=== PATIENT | male | born 1970 | race Caucasian/White ===

== ENCOUNTER 2021-01-14 09:51 | Day surgery (SDC) | payer BC ==
[~2021-01-14] VITALS: Ht 180.3 cm; Wt 83.0 kg
[~2021-01-14 09:51] MED LIST: BUPIVACAINE-EPI 0.5% 30 ML VIAL KIT. ONE; HYDROmorphone 2 MG/ML VIAL IVP PRN; IV RINGERS,LACTATED 1000ML 1,000 ML IV SCH; MORPHINE SULFATE 2 MG/ML INJ. IVP PRN; PROCHLORPERAZINE 10 MG/2 ML VIAL. IVP PRN; fentaNYL PF VIAL 100 MCG/2 ML VIAL IVP PRN
[2021-01-14 10:20] VITALS: BP 138/76
--- NOTE | 2021-01-14 10:42 | PDOC1 ---
History and Physical Date of Admission Date of Admission DATE: 01/14/21 TIME: 10:39 History of Present Illness History of Present Illness The patient is a 50 year old male who reported with a symptomatic left inguinal hernia. He has noticed occasional protrusion from the groin, but one episode led to more severe pain. Gradually it reduced and the pain improved. He denies significant changes in bowel function. Past Medical History Past Medical History denies Past Surgical History Past Surgical History LASIK Social History Smoke: No ALCOHOL: rare Current Medications Current Medications Current Medications Fentanyl Citrate (Fentanyl 2ml Vial) 25 mcg PRN Q5MIN PRN IVP MILD PAIN 1-3; Start 01/14/21 at 06:00; Stop 01/14/21 at 20:00 Fentanyl Citrate (Fentanyl 2ml Vial) 50 mcg PRN Q5MIN PRN IVP MODERATE PAIN 4- 6; Start 01/14/21 at 06:00; Stop 01/14/21 at 20:00 Morphine Sulfate (Morphine Sulfate) 1 mg PRN Q10MIN PRN IVP SEVERE PAIN 7-10; Start 01/14/21 at 06:00; Stop 01/14/21 at 20:00 Ringer's Solution 1,000 ml @ 30 mls/hr Q24H IV Last administered on 01/14/21at 10:29; Start 01/14/21 at 06:00; Stop 01/14/21 at 17:59 Hydromorphone HCl (Dilaudid) 0.5 mg PRN Q10MIN PRN IVP SEVERE PAIN 7-10, 2nd CHOICE; Start 01/14/21 at 06:00; Stop 01/14/21 at 20:00 Prochlorperazine Edisylate (Compazine) 5 mg PACU PRN PRN IVP NAUSEA, MRX1; Start 01/14/21 at 06:00; Stop 01/14/21 at 20:00 Cefazolin Sodium/ Dextrose 50 ml @ 100 mls/hr 1X PREOP PRN IV PRIOR TO PROCEDURE; Start 01/14/21 at 06:00; Stop 01/14/21 at 18:00 Bupivacaine HCl/ Epinephrine Bitart (Sensorcain-Epi 0.5% Kit) 30 ml STK-MED ONCE .ROUTE ; Start 01/14/21 at 07:02; Stop 01/14/21 at 07:02; Status DC Active Scripts Active Reported No Known Medications Prior To Admisstion (Info) Each 1 Each MC 1X Allergies Allergies: Coded Allergies: amoxicillin (Verified Allergy, Unknown, DIARRHEA, 01/14/21) clavulanic acid (Verified Allergy, Unknown, DIARRHEA, 01/14/21) ROS General: No: Chills, Night Sweats, Fatigue, Malaise, Appetite, Other PSYCHOLOGICAL ROS: No: Anxiety, Behavioral Disorder, Concentration difficultie, Decreased libido, Depression, Disorientation, Hallucinations, Hostility, Irritablity, Memory difficulties, Mood Swings, Obsessive thoughts, Physical abuse, Sexual abuse, Sleep disturbances, Suicidal ideation, Other Eyes: No Blurry vision, No Decreased vision, No Double vision, No Dry eyes, No Excessive tearing, No Eye Pain, No Itchy Eyes, No Loss of vision, No Photophobia, No Scotomata, No Uses contacts, No Uses glasses, No Other HEENT: No: Heacaches, Visual Changes, Hearing change, Nasal congestion, Nasal discharge, Oral lesions, Sinus pain, Sore Throat, Epistaxis, Sneezing, Snoring, Tinnitus, Vertigo, Vocal changes, Other ALLERGY AND IMMUNOLOGY: No: Hives, Insect Bite Sensitivity, Itchy/Watery Eyes, Nasal Congestion, Post Nasal Drip, Seasonal Allergies, Other Hematological and Lymphatic: No: Bleeding Problems, Blood Clots, Blood Transfusions, Brusing, Night Sweats, Pallor, Swollen Lymph Nodes, Other ENDOCRINE: No: Breast Changes, Galactorrhea, Hair Pattern Changes, Hot Flashes, Malaise/lethargy, Mood Swings, Palpitations, Polydipsia/polyuria, Skin Changes, Temperature Intolerance, Unexpected Weight Changes, Other Cardiovascular: No Chest Pain, No Palpitations, No Orthopnea, No Paroxysmal Noc. Dyspnea, No Edema, No Lt Headedness, No Other Gastrointestinal: No Nausea, No Vomiting, No Abdominal Pain, No Diarrhea, No Constipation, No Melena, No Hematochezia, No Other Genitourinary: No Dysuria, No Frequency, No Incontinence, No Hematuria, No Retention, No Discharge, No Urgency, No Pain, No Flank Pain, No Other, No , No , No , No , No , No , No Musculoskeletal: No Gait Disturbance, No Joint Pain, No Joint Stiffness, No Joint Swelling, No Muscle Pain, No Muscular Weakness, No Pain In:, No Swelling In:, No Other Skin: No Dry Skin, No Eczema, No Hair Changes, No Lumps, No Mole Changes, No Mottling, No Nail Changes, No Pruritus, No Rash, No Skin Lesion Changes, No Other, No Acne Physical Exam General: Alert, Oriented X3, Cooperative HEENT: Atraumatic Lungs: Clear to auscultation Heart: RRR Abdomen: Soft Male Genitals Exam: hernia (left side, reducible) Extremities: No clubbing, No cyanosis Skin: No rashes Neuro: Normal speech Psych/Mental Status: Mental status NL Vitals Vitals Vital Signs Date Time Temp Pulse Resp B/P (MAP) Pulse Ox O2 Delivery O2 Flow Rate FiO2 01/14/21 10:24 98.3 79 18 138/76 98 Room Air 98.3 VTE Prophylaxis Ordered VTE Prophylaxis Devices: Yes VTE Pharmacological Prophylaxi: No Assessment/Plan Assessment/Plan Left inguinal hernia; I reviewed the details regarding surgical repair of the hernia and the use of mesh. The risks of surgery were also discussed. He understands and would like to proceed. Justifications for Admission Other Justification LIYA LOREDO MD Jan 14, 2021 10:42
[2021-01-14] MEDS ORDERED: PROPOFOL 10 MG/ML (20ML) VIAL. IV ONE ×2 (11:10→11:14)
[2021-01-14] MEDS ORDERED: DEXAMETHASONE SOD PHOS 4 MG/ML VIAL ONE (11:10)
[2021-01-14] MEDS ORDERED: ROCURONIUM 50 MG/5 ML VIAL. ONE (11:11)
[2021-01-14] MEDS ORDERED: MIDAZOLAM HCL/PF 2 MG/2 ML VIAL. ONE (11:11)
[2021-01-14] MEDS ORDERED: fentaNYL PF VIAL 100 MCG/2 ML VIAL ONE ×2 (11:11→13:24)
[2021-01-14] MEDS ORDERED: ONDANSETRON PF 4 MG/2 ML VIAL. ONE (11:12)
[2021-01-14] MEDS ORDERED: SEVOFLURANE 31 TO 60 MINUTES. IH ONE (11:15)
[2021-01-14] MEDS ORDERED: NEOSTIGMINE METHYLSULFATE 5 MG/5 ML SYRINGE. ONE (11:20)
[2021-01-14] MEDS ORDERED: GLYCOPYRROLATE 1 MG/5 ML VIAL. ONE ×2 (11:21→11:23)
[2021-01-14] MEDS ORDERED: KETOROLAC 30 MG/ML VIAL. ONE (11:23)
--- NOTE | 2021-01-14 13:17 | PDOC4 ---
Operative Note Operative Note Operative Note: Preoperative Diagnosis: Left inguinal hernia Postoperative Diagnosis: Same Procedure: Left inguinal hernia repair with mesh Surgeon: [employer] Cutting Machine Operator: Harrison Pickering [id number] Anesthesia: General EBL: 10 mL Specimen: Left inguinal hernia sac, cord lipoma to pathology Drains: None Complications: None Indication: The patient is a 50-year-old male who reported with a left inguinal hernia. He was offered surgical repair. The risks of surgery were discussed which include bleeding, infection, pain, anesthetic risk, recurrence, potential need for additional surgery procedure. He understands and would like to proceed. Description: The patient was taken the operating room and placed supine on the operating table. General anesthesia was performed. The left groin was shaved and prepped with ChloraPrep and draped in a standard surgical manner. An incision was made in the skin lines with a scalpel. Cautery dissection was ca rried down to the external oblique. The aponeurosis was opened down to the external ring. The contents of the inguinal canal were digitally mobilized and encircled with a Sun drain. There was a moderate sized indirect hernia sac present. This was freed from the surrounding cord structures. He did have a moderate sized cord lipoma which was excised and sent to pathology. The hernia sac was freed down to its base. We elected to excise it given its redundancy. The sac was oversewn near its base and the excised portion was sent to pathology. The remaining stump was inverted and the defect was filled with a large Phasix mesh plug. The plug was sutured into position with 2-0 Vicryl. The inguinal floor was then reinforced with a keyhole Prolene mesh patch. The mesh was also sutured into position with 2-0 Vicryl. The external oblique was closed over the mesh with 2-0 Vicryl. The subcutaneous tissue was closed with 3-0 Vicryl. The skin was closed with 4-0 Monocryl and infiltrated with half percent Marcaine with epinephrine. Steri-Strips and a sterile dressing were applied. The patient tolerated the procedure well and was sent to the recovery room in stable condition. At the end the case all counts were correct LIYA LOREDO MD Jan 14, 2021 13:17
[2021-01-14] MEDS ORDERED: OXYC-325 PO (13:19)
--- NOTE | 2021-01-14 13:21 | DISCH ---
DISCHARGE INSTRUCTIONS Condition on Discharge Condition on Discharge: Stable Activity After Discharge Activity Instructions for Disc: Other, see below (no lifting over 20 lbs X 4 weeks, no driving while taking pain meds) Diet after Discharge Diet after Discharge: Regular Wound Incision Care Wound/Incision Care: Other, see below (Keep dressing clean and dry X 72 hours, may then remove and shower) Follow-Up Follow up with: Dr Loredo in 2 weeks in office, call for appointment [phone] LIYA LOREDO MD Jan 14, 2021 13:20
[2021-01-14] MEDS ORDERED: MORPHINE SULFATE 2 MG/ML INJ. ONE (13:24)
[2021-01-14] MEDS ORDERED: oxyCODONE/APAP 5/325 1 TAB TABLET PO ONE ×2 (13:45)
[2021-01-14 13:53] VITALS: BP 131/71
== END 2021-01-14 14:25 | disposition home or self-care (01) ==
LOC: SURG 09:51
PROVIDERS: ATTEND Surgery
DX: K40.90 Unilateral inguinal hernia, without obstruction or gangrene, not specified as recurrent (principal); Z79.899 Other long term (current) drug therapy; Z98.890 Other specified postprocedural states; Z88.1 Allergy status to other antibiotic agents; Z88.8 Allergy status to other drugs, medicaments and biological substances
CPT/HCPCS: 49505; A4209; A4364; A4930; A6402; C1781; J0690; J1100; J1885; J2250; J2270; J2405; J2704; J2710; J3010; J3490; A4452